=== PATIENT | female | born 1945 | race Caucasian/White ===

== ENCOUNTER 2016-09-15 09:25 | Day surgery (SDC) | payer MEDICARE, BC ==
[~2016-09-15 09:25] MED LIST: Acetaminophen TAB* 325 MG PO PRN; Buffered Lidocaine 1% SYR 3ML* 3 ML/SYR SYRINGE INTRADERM ONE
[2016-09-15] MEDS ORDERED: Flurbiprofen 0.03% OPTH.SOL* 2.5 ML BTL ONE (10:32)
[2016-09-15] MEDS ORDERED: Phenylephrine 2.5% OPTH.SOL* 2 ML BTL ONE (10:32)
[2016-09-15] MEDS ORDERED: Tetracaine 0.5% OPTH.SOL 4 ML* 1 DROP BTL ONE (10:32)
[2016-09-15] MEDS ORDERED: Tropicamide 1% OPTH.SOL* BTL ONE (10:32)
[2016-09-15] MEDS ORDERED: Lidocaine 1% MPF* 2 ML VIAL ONE (10:32)
[2016-09-15] MEDS ORDERED: Neomycin/Polymy/Dex OPHTH.OIN* 3.5 GM ONE (10:32)
[2016-09-15] MEDS ORDERED: Cyclopentolate 1% OPTH.SOL* 2 ML BTL ONE (10:32)
[2016-09-15] MEDS ORDERED: fentaNYL* 50 MCG/ML 2 ML VIAL (100 MCG VIAL) ONE (10:41)
[2016-09-15] MEDS ORDERED: Midazolam* 1 MG/ML 2 ML VIAL (2 MG) ONE ×2 (10:42→10:56)
[2016-09-15 11:46] VITALS: BP 168/80
--- NOTE | 2016-09-16 00:18 | OP ---
DATE OF OPERATION: 09/15/16 [facility] DATE OF : 45 SURGEON: Dr. William Nguyen. EGG TRAYER: None. ANESTHESIOLOGIST: Delphine Kelly MD ANESTHESIA: Topical with intravenous sedation. PRE-OP DIAGNOSIS: Cataract, left eye. POST-OP DIAGNOSIS: Cataract, left eye. OPERATIVE PROCEDURE: Phacoemulsification and cataract extraction with posterior chamber intraocular lens implant, left eye. COMPLICATIONS: None. BLOOD LOSS: None. DESCRIPTION OF PROCEDURE: The patient was brought to the operating room and received a small amount of intravenous sedation. A drop of Tetracaine was placed in her left eye. She was prepped and draped in the usual sterile fashion for ophthalmic surgery and attention was directed to the left eye where a speculum was placed. A paracentesis was created at the 5 o'clock position and 0.1 cc of 1 percent preservative-free Lidocaine was injected into the anterior chamber followed by DisCoVisc. The eye was digitally stabilized while a 2.75 mm keratome was used to create a triplanar clear corneal incision at the 3 o'clock position. A continuous curvilinear capsulorrhexis was created with a cystotome and Utrata forceps. BSS on a cannula was used to hydrodissect the lens from the capsule. Phacoemulsification was performed in a divide-and- conquer technique to create four fragments which were removed. Residual cortical material was removed with irrigation and aspiration. DisCoVisc was used to inflate the capsular bag using an [id number] 21.5 diopter lens was folded and inserted into the capsular bag. DisCoVisc was removed using irrigation and aspiration. BSS on a cannula was used to hydrate the corneal stroma and seal the wound. At the end of the case the pupil was round and the lens was centered. The eye was of normal pressure and the wound was water tight. The speculum was removed and topical Maxitrol ointment was placed on the surface of the eye. The eye was closed, patched and shielded and the patient was sent to the recovery room in stable condition with post operative instructions and follow-up appointment given. [id number]/CPS #: [id number] MTDD
== END 2016-09-15 11:41 | disposition home or self-care (01) ==
LOC: OREAST 09:25
PROVIDERS: ATTEND Ophthalmology
DX: H25.812 Combined forms of age-related cataract, left eye (principal); I10 Essential (primary) hypertension; E03.9 Hypothyroidism, unspecified; E78.00 Pure hypercholesterolemia, unspecified; H40.019 Open angle with borderline findings, low risk, unspecified eye; M17.12 Unilateral primary osteoarthritis, left knee; E66.9 Obesity, unspecified; Z88.1 Allergy status to other antibiotic agents; Z88.5 Allergy status to narcotic agent; Z79.82 Long term (current) use of aspirin; Z68.35 Body mass index [BMI] 35.0-35.9, adult; M79.7 Fibromyalgia; Z79.1 Long term (current) use of non-steroidal anti-inflammatories (NSAID)
CPT/HCPCS: A9270-GY; J2250; J3010; V2632

== ENCOUNTER 2019-03-23 11:10 | Inpatient (IN) | payer MEDICARE, BC ==
--- NOTE | 2019-03-16 16:22 | HP ---
AMENDED REPORT NOW INCLUDES DESIGNATED COSIGNER - ESIGNED BEFORE ADJUSTMENTS PREOPERATIVE HISTORY AND PHYSICAL: DATE OF ADMISSION/SURGERY: 03/23/19 SURGEON: Dr. Mireille Lua.* (DICTATED BY ROBERTO Rose) PROCEDURE: Right total hip arthroplasty. CHIEF COMPLAINT: Right hip pain. HISTORY OF PRESENT ILLNESS: This is a 73-year-old female followed by Dr. Lua for right hip pain that has become progressively debilitating over the years. She had undergone intraarticular injections, which had helped for a few weeks, but the groin pain returned and is severe. Any amount of stair climbing, prolonged standing, or rising from a seated position causes severe pain. She has failed conservative treatments and is seeking surgical intervention with Dr. Lua at this time. PAST MEDICAL HISTORY: Chronic low back pain and osteoarthritis, hypertension, diverticulitis, hypothyroidism, morbid obesity. She denies history of DVT or pulmonary embolism. PAST SURGICAL HISTORY: Hysterectomy as well as a cyst and duct removal from her breast. She denies anesthetic complications from any of these procedures, but does get nauseous with anesthesia. CURRENT MEDICATIONS: 1. Synthroid 100 mcg 1 tab by mouth daily. 2. Amlodipine besylate 2.5 mg 1 tab by mouth daily. 3. Celebrex 100 mg twice daily. 4. Vitamin D high potency 1 tab by mouth daily. 5. Vitamin B complex 1 tab by mouth daily. ALLERGIES: PERCOCET makes her nauseous. FAMILY HISTORY: Negative for heart disease, diabetes, or cancer. SOCIAL HISTORY: She lives with her spouse, who will care for her postoperatively. She is a retired cashier or checker stock clerk. She consumes minimal alcohol and denies tobacco or recreational drug use. She is minimally active. REVIEW OF SYSTEMS: Fourteen systems were reviewed with the patient today. They are positive for right hip pain and chronic back pain, but are negative for fevers, chills, chest pain, or shortness of breath, and all other systems are negative as well. PHYSICAL EXAMINATION GENERAL: She is a well-developed, well-nourished female, seated on exam table, in no acute distress, with appropriate affect. VITAL SIGNS: Height 64 inches, weight 208 pounds. Pulse 68, blood pressure 132 /86, respirations 16. HEENT: Normocephalic, atraumatic. Hearing and vision are grossly intact, with extraocular movements intact. NECK: The trachea is midline and symmetrical. CHEST: Lungs are clear to auscultation. No wheezes, rales, or rhonchi appreciated. CARDIO: Regular rate and rhythm. Normal S1, S2. No murmurs, rubs, or gallops noted. ABDOMEN: Nondistended, nontender. Bowel sounds present. GENITOURINARY: Deferred. MUSCULOSKELETAL: Right lower extremity: Skin is pink, dry, and intact with no abrasions or open wounds. She has tenderness in the groin with hip flexion to 90 with pain. She has 0 degrees of internal rotation, 20 degrees of external rotation with groin pain. Sensation is intact. Active range of motion in the right ankle in 4 planes and a 2+ dorsalis pedis pulse. IMAGING: Multiple views of the right hip reviewed from the office. They show advanced arthritis with [id number] contact, extensive osteophyte formation and remodeling of both femoral head and acetabular bone. There is subchondral cyst formation. ASSESSMENT: Right hip severe osteoarthritis. PLAN: Right total hip arthroplasty with Dr. Lua. The patient's questions were answered and she would like to proceed. Dr. Lua reviewed the potential risks and complications with the patient today. The patient will follow up postoperatively and pain medication will be dispensed postoperatively. ROBERTO ROSE [id number]/CPS #: [id number] MTDKellen
[~2019-03-23 11:10] MED LIST changes: -Acetaminophen TAB* 325 MG PO PRN; -Buffered Lidocaine 1% SYR 3ML* 3 ML/SYR SYRINGE INTRADERM ONE; +Buffered Lidocaine 1% SYRIN* 1 ML/SYRINGE INTRADERM ONE; +Dexamethasone IV* 4 MG/ML 1 ML (4 MG) IV SLOW PU ONE; +Famotidine IV* 10 MG/ML 2 ML (20 mg) IV ONE; +Lactated Ringers 1000 ML Bag* 1,000 ML IV SCH; +Tranexamic Acid 1,000 MG in NS 0.9% 50 ML* (outpatient use) IV SCH
--- OUTSIDE RECORDS SUMMARY | 2019-03-23 11:14 | XMS REPORT | Continuity of Care Document ---
:1945 External Reference #:[id number] Author Name Mireille Lua M.D. (transmitted by agent of provider Faby Barnes) Address [address] [place] [address] Care Team Providers Name Role Phone Gumaro Jackman DO - Family Care Team Information Bottom Stainer Medicine Problems Active Problems Provider Date Localized, primary osteoarthritis of the pelvic Mireille Lua M.D. Onset: region and thigh Social History Type Date Description Comments Sex Unknown Tobacco Use Start: Unknown Never Smoked Cigarettes Smoking Status Reviewed: 03/13/19 Never Smoked Cigarettes ETOH Use Occasionally consumes alcohol Tobacco Use Start: Unknown Patient has never smoked Recreational Drug Use Denies Drug Use Exercise Type/Frequency Does not exercise Allergies, Adverse Reactions, Alerts Active Allergies Reaction Severity Comments Date Percocet 06/22/2018 Medications Active Medications SIG Qnty Indications Ordering Provider Date Tramadol HCL 1 tablet every 4 72tabs Evert Granados MD 03/13/2019 50mg hours as needed Tablets for pain Zofran 1 tab by mouth 20tabs Evert Granados MD 03/13/2019 4mg Tablets every 4 hours as needed for nausea Synthroid 1 by mouth every Unknown 100mcg day Tablets Amlodipine Besylate 1 by mouth every Unknown day 2.5mg Tablets Celecoxib Unknown 100mg Capsules Vitamin D High 1 by mouth every Unknown Potency day Capsules Vitamin-B Complex 1 by mouth every Unknown day Tablets Medications Administered in Office Medication SIG Qnty Indications Ordering Provider Date Depomedrol 40MG Mireille Lua M.D. 06/22/2018 Injection Immunizations Description No Information Available Vital Signs Date Vital Result Comment 03/13/2019 12:59pm Height 64.25 inches 5'4.25" Weight 208.00 lb Heart Rate 68 /min BP Systolic 132 mmHg BP Diastolic 86 mmHg Respiratory Rate 15 /min Body Temperature 97.6 F Pain Level 3 BMI (Body Mass Index) 35.4 kg/m2 03/01/2019 11:23am Height 64.25 inches 5'4.25" Weight 200.00 lb BP Systolic 126 mmHg BP Diastolic 84 mmHg Pain Level 3 BMI (Body Mass Index) 34.1 kg/m2 Results Test Date Facility Test Result H/L Range Note Urinalysis Profile 03/09/2019 [facility] Urine Color Yellow [address] [place] [address] [phone] Urine Appearance Turbid Urine Specific [place] 1.021 Normal 1.010-1.030 Urine pH 5.0 Normal 5-9 Urine Urobilinogen Negative Negative Urine Ketones Negative Negative Urine Protein Negative Negative Urine Leukocytes Negative Negative Urine Blood Negative Negative Urine Nitrite Negative Negative Urine Bilirubin Negative Negative Urine Glucose Negative Negative Inr/Protime 03/09/2019 [facility] Inr 0.97 Normal 0.82-1.09 1 [address] [place] [address] [phone] CBC Auto Diff 03/09/2019 [facility] White Blood 5.7 Normal 3.5 -10.[address] Count 10^3/[place] [address] [phone] Red Blood Count 5.13 10^6/uL High 3.70-4.87 Hemoglobin 15.4 g/dL Normal 12.0-16.0 Hematocrit 46 % Normal 35-47 Mean Corpuscular Volume 90 fL Normal 80-97 Mean Corpuscular Hemoglobin 30 pg Normal 27-31 Mean Corpuscular HGB Conc 33 g/dL Normal 31-36 Red Cell Distribution Width 14 % Normal 10-15 Platelet Count 203 10^3/uL Normal 150-450 Mean Platelet Volume 9.1 fL Normal 7.4-10.4 Abs Neutrophils 3.7 10^3/uL Normal 1.5-7.7 Abs Lymphocytes 1.4 10^3/uL Normal 1.0-4.8 Abs Monocytes 0.5 10^3/uL Normal 0-0.8 Abs Eosinophils 0.1 10^3/uL Normal 0-0.6 Abs Basophils 0.0 10^3/uL Normal 0-0.2 Abs Nucleated RBC 0.0 10^3/uL Granulocyte % 64.3 % Lymphocyte % 25.3 % Monocyte % 8.0 % Eosinophil % 1.9 % Basophil % 0.5 % Nucleated Red Blood Cells % 0.2 Comp Metabolic 03/09/2019 [facility] Sodium 141 mmol/L Normal 135-[address] [place] [address] [phone] Potassium 4.6 mmol/L Normal 3.5-5.0 Chloride 107 mmol/L Normal 101-111 Co2 Carbon Dioxide 29 mmol/L Normal 22-32 Anion Gap 5 mmol/L Normal 2-11 Glucose 95 mg/dL Normal 70-100 Blood Urea Nitrogen 17 mg/dL Normal 6-24 Creatinine 0.79 mg/dL Normal 0.51-0.95 BUN/Creatinine Ratio 21.5 High 8-20 Calcium 9.7 mg/dL Normal 8.6-10.3 Total Protein 6.8 g/dL Normal 6.4-8.9 Albumin 4.1 g/dL Normal 3.2-5.2 Globulin 2.7 g/dL Normal 2-4 Albumin/Globulin Ratio 1.5 Normal 1-3 Total Bilirubin 0.70 mg/dL Normal 0.2-1.0 Alkaline Phosphatase 111 U/L High 34-104 Alt 31 U/L Normal 7-52 Ast 22 U/L Normal 13-39 Egfr Non- 71.3 >60 Egfr 86.3 >60 2 Laboratory test 03/09/2019 [facility] Thyroxine 8.35 Normal 6.09-12.[address] g/[place] [address] [phone] TSH (Thyroid Stim Horm) 1.68 mcIU/mL Normal 0.34-5.60 4 T3 Total 88 ng/dL Normal 87-178 5 Urine Culture And 03/09/2019 [facility] Urine Culture SEE RESULT [address] [place] [address] [phone] 1 Standard intensity warfarin therapeutic range: 2.0-3.0 High intensity warfarin therapeutic range: 2.5-3.5 2 Because ethnic data is not always readily available, this report includes an eGFR for both -Americans and non- Americans. The National Kidney Disease Education Program (NKDEP) does not endorse the use of the MDRD equation for patients that are not between the ages of 18 and 70, are , have extremes of body size, muscle mass, or nutritional status, or are non- or non-. According to the National Kidney Foundation, irrespective of diagnosis, the stage of the disease is based on the level of kidney function: Stage Description GFR(mL/min/1.73 m(2)) 1 Kidney damage with normal or decreased GFR 90 2 Kidney damage with mild decrease in GFR 60-89 3 Moderate decrease in GFR 30-59 4 Severe decrease in GFR 15-29 5 Kidney failure <15 (or dialysis) 3 Copy Result to: Mireille LUA ([id number]) 4 Copy Result to: Mireille LUA ([id number]) 5 Copy Result to: Mireille LUA ([id number]) 6 SEE RESULT BELOW Name: DAISY AQUINO Sofía : [address]: Rose CHANCE Acct: [id number] Unit: [id number] AGE: 73 Location: [facility] Re03/09/19 SEX: F Status: REG REF SPEC: [id number] JERRI: 03/09/19-[address]: Rose CHANCE REQ: [id number] RECD: 03/09/19 STATUS: SARA FAN DR: Mireille Lua MD _ SOURCE: URINE [facility]: ORDERED: Urine Culture Urine Source: Clean Catch Procedure Result Reported Site Urine Culture Final 03/11/19- 1013 ML Organism 1 STREP GROUP B [facility] Count 10-25,000 (Moderate) CFU/ML Organism 2 NORMAL LAM [facility] Count 10-25,000 (Moderate) CFU/ML Susceptibility testing of penicillins and other B-lactams approved by FDA for treatment of Streptococcus pyogenes (Group A Strep) and Streptococcus agalactiae (Group B Strep) is not necessary for clinical purposes and need not be done routinely, since as with vancomycin, resistant strains have not been recognized. (CLSI B191-U93;p.66) Positive isolates will be saved for one week. Please call the Microbiology Laboratory if further susceptibility testing is needed. * [facility] - Main Lab . END OF REPORT DEPARTMENT OF PATHOLOGY, [address] [place] [address] Skyler Shin M.D. Director [facility] # [id number] Procedures Description No Information Available Medical Devices Description No Information Available Encounters Type Date Location Provider Dx Diagnosis Office Visit 02/02/2019 Neurosurgery Zaida Osorio, M48.061 Spinal stenosis, 3:00p [facility] lumbar region without neurogenic randy Office Visit 11/18/2018 Orthopedic Services Mireille Lua, Ovidio6.11 Unilateral 11:30a Of [facility] primary osteoarthritis, right hip M25.551 Pain in right hip Assessments Date Code Description Provider 03/13/2019 M16.11 Unilateral primary osteoarthritis, right hip Mireille Lua M.D. 03/13/2019 M25.551 Pain in right hip Mireille Lua M.D. 02/06/2019 M16.11 Unilateral primary osteoarthritis, right hip Mireille Lua M.D. 02/06/2019 M25.551 Pain in right hip Mireille Lua M.D. 02/03/2019 M16.11 Unilateral primary osteoarthritis, right hip Mireille Lua M.D. 02/03/2019 M25.551 Pain in right hip Mireille Lua M.D. 02/02/2019 M48.061 Spinal stenosis, lumbar region without Zaida Osorio, PA neurogenic claudication 11/18/2018 M16.11 Unilateral primary osteoarthritis, right hip Mireille Lua M.D. 11/18/2018 M25.551 Pain in right hip Mireille Lua M.D. Plan of Treatment Future Appointment(s):04/03/2019 2:15 pm - M[facility] M.D. at [facility]05/29/2019 12:00 pm - Layla Alaniz MD at [facility]03/23/2019 1:30 pm - MERON Agudelo at [facility]03/23/2019 1:30 pm - MERON Goncalves at [facility]03/23/2019 1:30 pm - Mireille Lua M.D. at [facility]/13/2019 - Mireille Lua M.D.M16.11 Unilateral primary osteoarthritis, right hipFollow up:Follow up: 10-14 days fxsnjuQ67.551 Pain in right hip Functional Status Description No Information Available Mental Status Description No Information Available Referrals Refer to Dr Reason for Referral Status Appt Date Layla Alaniz MD chronic low back pain Created [address] [place] [id number] [phone]
--- OUTSIDE RECORDS SUMMARY | 2019-03-23 11:14 | XMS REPORT | Continuity of Care Document ---
:1945 External Reference #:[id number] Author Name Cheryl Ren Care Team Providers Name Role Phone Gumaro Jackman DO Primary Care Physician Unavailable Payers Date Identification Numbers Payment Provider Subscriber Policy Number: [id number] Medicare Daisy Aquino PayID: [id number] [address] [place] [address] Policy Number: [id number] [facility] Daisy Aquino PayID: [id number] [address] [place] [address] Problems Active Problems Provider Date Localized, primary osteoarthritis of the pelvic Mireille Lua M.D. Onset: region and thigh Family History Date Family Member(s) Observation Comments General Cancer Social History Type Date Description Comments Sex Unknown Marital Status Lives With Occupation Retired Tobacco Use Start: Unknown Never Smoked Cigarettes Smoking Status Reviewed: 02/02/19 Never Smoked Cigarettes ETOH Use Occasionally consumes alcohol Tobacco Use Start: Unknown Patient has never smoked Recreational Drug Use Denies Drug Use Exercise Type/Frequency Does not exercise Allergies, Adverse Reactions, Alerts Active Allergies Reaction Severity Comments Date Percocet 06/22/2018 Medications Active Medications SIG Qnty Indications Ordering Provider Date Synthroid 1 by mouth every Unknown 100mcg Tablets day Amlodipine Besylate 1 by mouth every Unknown 2.5mg day Tablets Celecoxib Unknown 100mg Capsules Vitamin D High Potency 1 by mouth every Unknown day Capsules Vitamin-B Complex 1 by mouth every Unknown Tablets day History Medications Gabapentin take 1 capsule three Unknown - 02/02/2019 100mg Capsules times daily Medications Administered in Office Medication SIG Qnty Indications Ordering Provider Date Depomedrol 40MG Mireille Lua M.D. 06/22/2018 Injection Vital Signs Date Vital Result Comment 02/02/2019 2:59pm Height 64.25 inches 5'4.25" Weight 200.00 lb BP Systolic Sitting 158 mmHg BP Diastolic Sitting 60 mmHg Pain Level 3 BMI (Body Mass Index) 34.1 kg/m2 11/18/2018 11:29am Height 64.25 inches 5'4.25" Weight 200.00 lb Heart Rate 70 /min BP Systolic 138 mmHg BP Diastolic 76 mmHg Respiratory Rate 12 /min Pain Level 7 BMI (Body Mass Index) 34.1 kg/m2 07/08/2018 1:28pm Height 64.25 inches 5'4.25" Weight 203.00 lb Heart Rate 64 /min BP Systolic 140 mmHg BP Diastolic 86 mmHg BMI (Body Mass Index) 34.6 kg/m2 06/22/2018 12:53pm Height 64.5 inches 5'4.50" Weight 203.00 lb BP Systolic 116 mmHg BP Diastolic 72 mmHg Pain Level 2 When Sitting BMI (Body Mass Index) 34.3 kg/m2 Procedures Date Code Description Status 06/22/201894403 Inj/Aspir Major JT Or Bursa W/ US Completed Encounters Type Date Location Provider Dx Diagnosis Office Visit 11/18/2018 Orthopedic Mireille Lua, M16.11 Unilateral primary 11:30a [facility] osteoarthritis, right hip M25.551 Pain in right hip Office Visit 07/08/2018 Orthopedic Mireille M16.11 Unilateral primary 1:30p [facility]ua osteoarthritis, right [facility] hip M25.551 Pain in right hip Office Visit 06/22/2018 1:00p Orthopedic Services Mireille Lua M25.551 Pain in right Of [facility] hip M16.11 Unilateral primary osteoarthritis, right hip Plan of Treatment Future Appointment(s):03/01/2019 11:30 am - ROBERTO Shane at [facility]/07/2018 - VIELKA Shane99.23 Subluxation stenosis of neural canal of lumbar regionFollow up:Can follow up with either Dr. Alaniz or Devon MARTIN
--- OUTSIDE RECORDS SUMMARY | 2019-03-23 11:14 | XMS REPORT | Continuity of Care Document ---
:1945 External Reference #:[id number] Author Name Rose Garay PA (transmitted by agent of provider Nelly Lopez) Address [address] [facility], [facility] [address] [place] [address] Care Team Providers Name Role Phone Mireille Lua MD - Orthopaedic Care Team Information Radiographer [phone] Surgery Problems Active Problems Provider Date Backache Nayely Zambrano MD Onset: 02/18/2010 Arthralgia of the lower leg Nayely Zambrano MD Onset: 02/18/2010 Obesity Nayely Zambrano MD Onset: 02/18/2010 Pure hypercholesterolemia Nayely Zambrano MD Onset: 02/18/2010 Benign essential hypertension Nayely Zambrano MD Onset: 02/18/2010 Hypothyroidism Nayely Zambrano MD Onset: 05/07/2011 Female climacteric state Nayely Zambrano MD Onset: 05/07/2011 Cramp and spasm Gumaro Jackman D.O. Onset: 09/05/2015 Localized, primary osteoarthritis Gumaro Jackman D.O. Onset: 09/05/2015 Spinal stenosis of lumbar region Gumaro Jackman D.O. Onset: 09/05/2015 Essential hypertension Gumaro Jackman D.O. Onset: 11/05/2015 Vitamin D deficiency Gumaro Jackman D.O. Onset: 03/10/2016 Thoracic and lumbosacral neuritis Rose Garay PA Onset: 03/23/2017 Social History Type Date Description Comments Sex Unknown Tobacco Use Start: Unknown Never Smoked Cigarettes ETOH Use Rare Alcohol Use Recreational Drug Use Denies Drug Use Tobacco Use Start: Unknown Patient has never smoked Smoking Status Reviewed: 03/09/19 Patient has never smoked Allergies, Adverse Reactions, Alerts Active Allergies Reaction Severity Comments Date Codeine Nauseous, Dizzy 03/02/2006 Biaxin 09/09/2010 Medications Active Medications SIG Qnty Indications Ordering Provider Date Celecoxib Take 1 Capsule 180caps M17.0 Selvin Scanlon, 03/05/2018 100mg By Mouth Once To M.D. Capsules Twice Daily as Needed For Joint Pain Vitamin D3 Maximum 1 by mouth every Unknown 12/05/2015 Strength day 5000Unit Capsules Amlodipine Besylate Take One Tablet 90tabs I10 Gumaro Jackman, 11/05/2015 By Mouth Every D.O. 2.5mg Tablets Day Vitamin B-12 1 by mouth every Unknown 09/04/2015 500mcg day Tablets Synthroid 1 tab po every 90tabs E03.9 Selvin Scanlon, 11/28/2013 100mcg morning M.D. Tablets Medications Administered in Office Medication SIG Qnty Indications Ordering Provider Date injection, kenalog, 10 mg Gumaro Jackman, D.O. 09/08/2016 Injection injection, kenalog, 10 mg Gumaro Jackman, D.O. 11/05/2015 Injection Immunizations CPT Code Status Date Vaccine Lot # [id number] Given 03/09/2019 Shingrix Zoster (Shingles) Vaccine (HZV) [id number] Recomb,Subnit,Adjuvanted 16418 Given 03/09/2019 Influenza Vaccine, Inactivated, Subunit, [id number] Adjuvanted, For Intrmusc 39887 Given 03/08/2018 Shingrix Zoster (Shingles) Vaccine (HZV) [id number] Recomb,Subnit,Adjuvanted 55695 Given 03/08/2018 Influenza Vaccine Split Virus Preservative Free Im [id number] Use 12444 Given 03/03/2017 Influenza Vaccine Split Virus Preservative Free Im [id number] Use 31403 Given 04/09/2016 Influenza Vaccine Split Virus Preservative Free Im [id number] Use 39472 Given 12/06/2015 Prevnar 13 [id number] 96152 Given 04/28/2013 Flu, Split Virus 3Yrs 26117 Given 06/08/2012 Flu Vaccine Split Virus 3Yrs And Older [id number] 67679 Given 05/07/2011 Pneumococcal Immunization [id number] 32171 Given 05/07/2011 Flu, Split Virus 3Yrs [id number] 87990 Given 09/09/2010 Zostavax [id number] 52581 Given 02/18/2010 Adacel or Boostrix, TDaP [id number] 41438 Given 08/20/2006 Td Immunization [id number] 57561 Given 04/04/1997 Td Immunization Vital Signs Date Vital Result Comment 03/09/2019 10:24am BP Systolic 146 mmHg BP Diastolic 82 mmHg BP Systolic Recheck 134 mmHg BP Diastolic Recheck 82 mmHg Height 64 inches 5'4" Weight 208.00 lb BMI (Body Mass Index) 35.7 kg/m2 03/08/2018 8:48am BP Systolic 130 mmHg BP Diastolic 82 mmHg Height 64.75 inches 5'4.75" with sandals Weight 204.00 lb with sandals BMI (Body Mass Index) 34.2 kg/m2 Results Test Date Facility Test Result H/L Range Note CBC Auto Diff 03/09/2019 [facility] White Blood 5.7 10^3/uL Normal 3.5-10.8 [phone] Count Red Blood Count 5.13 10^6/uL High 3.70-4.87 [...] % Nucleated Red Blood Cells % 0.2 Inr/Protime 03/09/2019 [facility] Inr 0.97 Normal 0.82-1.09 4 [phone] Urinalysis Profile 03/09/2019 [facility] Urine Color Yellow [phone] Urine Appearance Turbid Urine Specific [place] 1.021 Normal 1.010-1.030 Urine pH 5.0 Normal 5-9 Urine Urobilinogen Negative Negative Urine Ketones Negative Negative Urine Protein Negative Negative Urine Leukocytes Negative Negative Urine Blood Negative Negative Urine Nitrite Negative Negative Urine Bilirubin Negative Negative Urine Glucose Negative Negative Laboratory test 03/09/2019 [facility] TSH (Thyroid Stim <pending> finding [phone] Horm) Thyroxine <pending> T3 Total <pending> 1 Standard intensity warfarin therapeutic range: 2.0-3.0 High intensity warfarin therapeutic range: 2.5-3.5 Procedures Date Code Description Status 03/09/2019 66886 Electrocardiogram Complete Completed 02/13/2019 [id number] Mammogram Completed 11/03/2015 39278358 Colonoscopy Completed Medical Devices Description No Information Available Encounters Type Date Location Provider Dx Diagnosis Office Visit 03/09/2019 Main Office Rose Garay PA Z01.818 Encounter for other 10:05a preprocedural examination Z23 Encounter for immunization M16.11 Unilateral primary osteoarthritis, right hip I10 Essential (primary) hypertension M48.061 Spinal stenosis, lumbar region without neurogenic randy E03.9 Hypothyroidism, unspecified Z41.8 Encntr for oth proc for purpose oth than [facility] Z68.35 Body mass index (BMI) 35.0-35.9, adult Assessments Date Code Description Provider 03/09/2019 Z01.818 Encounter for other preprocedural examination Rose Garay PA 03/09/2019 Z23 Encounter for immunization Rose Garay PA 03/09/2019 M16.11 Unilateral primary osteoarthritis, right hip Rose Garay PA 03/09/2019 I10 Essential (primary) hypertension Rose Garay PA 03/09/2019 M48.061 Spinal stenosis, lumbar region without Rose Garay PA neurogenic claudication 03/09/2019 E03.9 Hypothyroidism, unspecified Rose Garay PA 03/09/2019 Z41.8 Encounter for other procedures for purposes [facility] 03/09/2019 Z68.35 Body mass index (BMI) 35.0-35.9, adult Rose Garay PA Plan of Treatment Future Appointment(s):03/06/2020 9:40 am - Rose Garay PA at Main [id number] - Rose Garay, PAZ01.818 Encounter for other preprocedural examinationComments:Patient is at mildly increased risk for surgery due to age, but is cleared for planned procedure without additional cardiac testing based on ACC/AHA guidelines, provided labs are within acceptable range. Functional capacity is mildly decreased, as activity is limited by pain.Patient has no prior anesthetic related complications.She was advised to inform the surgeon of any acute illness which may occur between now and surgical date. This consultation has been faxed to the referring physician.Studiesordered in Office: EKG - Sinus bradycardia. Vent rate 58, Betty 207 QRSd 125, QT/QTc 452/449, P-R-T axes 51/9/16. Compared to 07/11/13 EKG, no significant change.Labs - CMP, CBC, INR , UA, TSH drawn in office today. Results pending, will be copied to surgeon.Z23 Encounter for immunizationComments:Flu and Shingrix #2 vaccines given today.M16.11 Unilateral primary osteoarthritis, right hipComments:Surgery to be done as above.I10 Essential (primary) hypertensionComments:Well controlled. Continue same meds and monitor.M48.061 Spinal stenosis, lumbar region without neurogenic claudicationComments:Pt will f/u w Dr. Steiner after hip surgery.E03.9 Hypothyroidism, unspecifiedComments:Will recheck TSH today, continue same dose of levothyroxine in the meantime.Z41.8 Encounter for other procedures for purposes other than remed[facility] health auqtmP71.35 Body mass index (BMI) 35.0-35.9, adult Functional Status Description No Information Available Mental Status Description No Information Available Referrals Description No Information Available
[2019-03-23] MEDS ORDERED: Buffered Lidocaine 1% SYRIN* 1 ML/SYRINGE INTRADERM ONE (11:59)
[2019-03-23] MEDS ORDERED: Gabapentin CAP(*) 300 MG ONE (11:59)
[2019-03-23] MEDS ORDERED: Famotidine IV* 10 MG/ML 2 ML (20 mg) ONE (11:59)
[2019-03-23] MEDS ORDERED: Dexamethasone IV* 4 MG/ML 1 ML (4 MG) ONE (11:59)
[2019-03-23] MEDS ORDERED: ceFAZolin 2 GM PREMIX in ORs 2 GM/50 ML BAG ONE (11:59)
[2019-03-23] MEDS: Gabapentin CAP(*) 300 MG PO ONE ×2 (12:11→19:55)
[2019-03-23] MEDS ORDERED: fentaNYL* 50 MCG/ML 2 ML VIAL (100 MCG VIAL) ONE (12:32)
[2019-03-23] MEDS ORDERED: ROPIVACAINE 5 MG/ML 30 ML BTL (0.5%) ONE (12:32)
[2019-03-23] MEDS ORDERED: Ropivacaine (OR use only) 2 MG/ML 10 ML ONE (12:32)
[2019-03-23] MEDS ORDERED: Midazolam* 1 MG/ML 5 ML VIAL (5 MG) ONE (12:32)
[2019-03-23] MEDS ORDERED: Propofol* 10 MG/ML 20 ML BTL ONE (12:32)
[2019-03-23] MEDS ORDERED: KETAMINE HCL* 50 MG/ML 10 ML VIAL ONE (12:32)
[2019-03-23] MEDS ORDERED: Ondansetron INJ* 2 MG/ML VIAL ONE (12:32)
[2019-03-23] MEDS ORDERED: Phenylephrine 10 MG/ML VIAL* 1 ML VIAL ONE (12:34)
[2019-03-23] MEDS ORDERED: Atracurium* 10 MG/ML 10 ML VIAL ONE (12:35)
[2019-03-23] MEDS ORDERED: Scopolamine 1.5 mg* PATCH ONE (13:10)
[2019-03-23] MEDS ORDERED: Glycopyrrolate IV* 0.2 MG/ML 1 ML VIAL ONE (13:37)
[2019-03-23] MEDS ORDERED: Ondansetron INJ* 2 MG/ML VIAL IV PRN ×2 (14:03→15:52)
[2019-03-23] MEDS ORDERED: Naloxone* 0.4 MG/ML 1 ML VIAL IV PRN (14:03)
[2019-03-23] MEDS ORDERED: DiMENhydriNATE IV* 50 MG/ML VIAL IV PUSH PRN (14:03)
[2019-03-23] MEDS ORDERED: HYDROmorphone INJ1* 1 MG/ML SYRINGE IV PRN (14:03)
[2019-03-23] MEDS ORDERED: fentaNYL* 50 MCG/ML 2 ML VIAL (100 MCG VIAL) IV PRN (14:03)
[2019-03-23] MEDS ORDERED: Cyclobenzaprine TAB* 10 MG PO PRN (15:52)
[2019-03-23] MEDS ORDERED: Polyethylene Glycol 3350* 17 GM PACKET PO PRN (15:52)
[2019-03-23] MEDS ORDERED: Morphine 10 MG/ML VIAL (1 ml) IV PRN (15:52)
[2019-03-23] MEDS ORDERED: diPHENhydraMINE PO* 25 MG PO PRN (15:52)
[2019-03-23] MEDS ORDERED: Ondansetron ODT TAB* 4 MG PO PRN (15:52)
[2019-03-23] MEDS ORDERED: diPHENhydraMINE IV* 50 MG/ML 1 ml VIAL (BENADRYL) IV PRN (15:52)
[2019-03-23] MEDS ORDERED: Magnesium Hydroxide LIQ* 30 ML UDC PO PRN (15:52)
[2019-03-23] MEDS: Lactated Ringers 1000 ML Bag* 1,000 ML IV SCH (19:00)
[2019-03-23] MEDS: traMADol TAB* 50 MG PO PRN (19:21)
--- NOTE | 2019-03-23 20:26 | OP ---
Operative Report - Blank - Operative Report Date of Operation: 03/23/19 Note: RMOAN WILLAMS 1945 Date Of Surgery: 03/23/19 Mireille Lua MD Through Operator: Heather MEJIA did help throughout the procedure with preparation of the hip, wound retraction, manipulation of the hip, and wound closure. Anesthesiologist: Bhavani Tamez MD Anesthesia Type: Spinal Preoperative Diagnosis: Right severe degenerative osteoarthritis of the hip Postoperative Diagnosis: As above Procedure Performed: Right Total Hip Arthroplasty Complications: None Specimen: Femoral head and acetabular reamings sent to pathology. Hardware used: This is uncemented Filipe total hip arthroplasty hardware for the femur a size 4 accolade II with 127 neck angle femoral component, for the acetabulum a size 52E trident II tritanium cluster hole shell with a 20 mm screw, for the insert a size 36E trident X3 polyethylene insert, and for the femoral head a size 36 +0 ceramic biolox V40 femoral head. Brief history/Indication: ROMAN WILLAMS was known in clinic and had a history of severe right hip pain. She failed conservative treatment with anti- inflammatories, pain pills, intra-articular injections and physical therapy. She elected to undergo right total hip arthroplasty due to continued pain and decreased quality of life. Radiographs showed severe end stage osteoarthritis of the hip with bone on bone contact. Informed consent was obtained from the patient. She understood the risks of surgery included but were not limited to: bleeding, infection, damage to nearby structures, intraoperative fracture, nerve palsy, failure of the hardware, early loosening, stiffness or loss of motion, dislocation, leg length discrepancy, anesthesia complications, stroke, heart attack, blood clot and . She wished to proceed. Intra-Operative findings: Intraoperatively the patient was noted to have severe loss of cartilage of the acetabulum and femoral head. Description of the Procedure: ROMAN WILLAMS was identified in the preanesthesia unit. Her right hip was marked as the correct operative side. Informed consent was signed and placed in the chart. The patient was taken to the operating room and placed under anesthesia without complication. A gallagher catheter was placed. The patient was placed on the peg board with all bony prominences well padded. The right lower extremity was prepped and draped in the usual sterile fashion. Preoperative time -out was made to correctly identify the patient, side and site. Appropriate intraoperative antibiotics were given within one hour of incision. A standard posterior incision was made and carried sharply down to the lateral fascia. A new 10 blade was used to make an incision in the fascia in line with the skin incision. A charnley retractor was placed. The piriformis and conjoined tendons were identified and elevated off the posterolateral femur using electrocautery. These were tagged with number 5 Ethibond. Next electrocautery was used to make a posterolateral capsular flap and this was tagged with number 5 Ethibonds. The hip was carefully dislocated. Lesser trochanter to the center of the femoral head was measured at 58 mm. The oscillating saw was used to make the femoral neck cut. The femoral head was carefully removed. The femur was retracted anteriorly and the acetabular retractors were placed. Long-handled knife was used to sharply remove any remaining labrum from the acetabular rim. The acetabulum was sequentially reamed up to a size 52. A bleeding subchondral bone bed was obtained. A trial liner was placed and had excellent fit and stability. A 52E trident II tritanium cup with a 20mm screw was placed and had excellent stability with appropriate anteversion and abduction angle. A size 36E trident X3 polyethylene liner was impacted into the acetabular shell. The liner was checked for stability and was stable. Next attention was turned to preparation of the femoral canal. A canal finder was used to enter the proximal femur. The femoral canal was sequentially broached up to a size 4 femoral broach trial. A trial neck and 36 + 0 trial femoral head was chosen. Lesser trochanter to center of the femoral head measurement was satisfactory. The hip was reduced and taken through a range of motion. The hip was stable in all positions with good soft tissue tension and appropriate leg lengths. The hip was dislocated and all trials were removed. The final implant chosen was a accolade II size 4 with 127 neck angle. This stem was impacted into the femoral canal without difficulty. The stem was stable with appropriate anteversion. The femoral head chosen was a 36 + 0 The head was impacted onto the femoral neck without difficulty. The final lesser trochanter to center of the femoral head measurement was satisfactory. The hip was reduced and taken through a range of motion. The hip was stable in all positions with good soft tissue tension and appropriate leg lengths. The hip was copiously irrigated with sterile saline. The previously tagged capsule and tendons were repaired to the posterolateral femur through two trochanteric drill holes. The lateral fascia layer was closed using number 1 vicryls. The rest of the incision was closed in a layered fashion using 0 and 2-0 vicryls. The skin was closed using 3-0 monocryl suture and Dermabond. Sterile adaptic, 4x4s and paper tape was used to cover the incision. The patients anesthesia was reversed without difficulty. She was taken to the PACU in stable condition. Intended weight-bearing will be as tolerated with posterior hip precautions.
[2019-03-23] MEDS: Docusate CAP* 100 MG PO SCH (21:30)
[2019-03-23] MEDS: Acetaminophen TAB* 325 MG PO SCH (21:30)
[2019-03-23] MEDS: ceFAZolin 1 GM ADVAN(*) 1 GM in NS 0.9% 50 ML* 50 ML IVPB SCH (21:30)
[2019-03-23] MEDS: Magnesium Hydroxide LIQ* 30 ML UDC PO SCH (21:30)
--- NOTE | 2019-03-23 22:57 | CONS ---
CC: Mireille Lua MD * CONSULTATION REPORT: DATE OF CONSULT: 03/23/19 CONSULTING PROVIDER: Mireille Lua MD. MY ATTENDING WHILE IN THE HOSPITAL: Dr. Gabriela Grover. REASON FOR CONSULTATION: Co-management of co-morbid medical conditions. HISTORY OF PRESENT ILLNESS: Ms. Aquino is a 73-year-old female with past medical history significant for hypertension, hypothyroidism, and osteoarthritis who is currently status post elective right total hip arthroplasty with spinal anesthesia for end-stage osteoarthritis. The patient postoperatively is having low heart rates and dizziness without hypotension. The patient previously had a reaction too. The patient's dizziness and bradycardia occurred approximately at the same time. The patient has no associated chest pain or shortness of breath. Before she came to the hospital, the patient was feeling very well. The patient had no fevers, chills, chest pain, shortness of breath, or dyspnea on exertion. The patient never passed out before. The patient has never been told she has a slow heart rhythm. The patient had some nausea before when her heart rate was dropping low. The patient also received gabapentin and ketamine, which per the anesthesiologist can cause bradycardia. The patient's last bowel movement was this morning and she does not feel as though she has to have one now. The patient is not in a significant amount of pain. The patient most recently took her amlodipine this morning. PAST MEDICAL HISTORY: Chronic low back pain, osteoarthritis, hypertension, diverticulitis, hypothyroidism, morbid obesity. PAST SURGICAL HISTORY: Hysterectomy, cyst in duct removed from her breast. MEDICATIONS: 1. Synthroid 100 mcg p.o. daily. 2. Amlodipine 2.5 mg p.o. daily. 3. Celebrex 100 mg p.o. daily. 4. Vitamin D 1 tab p.o. daily. 5. Vitamin B 1 tab p.o. daily. ALLERGIES: PERCOCET. FAMILY HISTORY: Unknown as the patient is adopted. The patient's son had thyroid cancer at age 47 and a daughter with bladder cancer in her 40s. SOCIAL HISTORY: The patient lives with her . 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 The patient has never smoked, drinks minimal alcohol, and denies illicit drug use. The patient's surrogate decision maker will be her , Case Aquino. REVIEW OF SYSTEMS: A 10-point review of systems was reviewed and was negative, except as noted above in the HPI. PHYSICAL EXAM: General: The patient is a 73-year-old female who appears her stated age and is sitting comfortably in the bed, in no acute distress. Vital Signs at the time of evaluation: Temperature 97.3, pulse rate 45, respiratory rate 16, oxygen saturation 96% on 2 L, blood pressure 128/84. HEENT: Head normocephalic, atraumatic. Sclerae anicteric. No conjunctival injection. Nasal mucosa moist. Oral mucosa moist. No pharyngeal erythema, postnasal drip, or exudate. Neck: Supple, nontender. No lymphadenopathy. No carotid bruit auscultated. No JVD. Cardiac: Bradycardic. No clicks, murmurs, gallops, or rubs. Pulses 2+ in the bilateral dorsalis pedis, posterior tibialis and radial areas. Respiratory: Clear to auscultation bilaterally. No wheezes, rales, or rhonchi. Good air exchange bilaterally. Abdomen: Soft, nontender, and nondistended. Bowel sounds present and normoactive in all 4 quadrants. No hepatosplenomegaly. No abdominal bruits auscultated. No hepatojugular reflux. Genitourinary: No suprapubic or CVA tenderness. Skin: Clean, dry, and intact. No rashes. Right hip covered in bulky dressing, not visualized. Neuro : Anesthetic below the knees, minimal movement in the bilateral lower extremities; left with greater movement than the right. Cranial nerves II through XII intact. Psychiatric: Pleasant and cooperative. DIAGNOSTIC STUDIES/LAB DATA: Preoperative laboratory data: White blood cell count 6.3, hemoglobin 15.3, platelet count 217. INR 1.01, APTT 37.0. Sodium 141, potassium 4.2, chloride 107, carbon dioxide 28, anion gap 6, BUN 16, creatinine 0.8, glucose 83, calcium 9.4. Bilirubin 0.6, AST 24, ALT 32, alkaline phosphatase 108. Protein 6.9, albumin 4.2, globulin 2.7. Urine unremarkable. EKG shows sinus bradycardia. T-wave inversion in V3 is new, replacing T-wave flattening. No ST-segment elevation or depression. Right bundle-branch block, unchanged from preoperative EKG. ASSESSMENT AND PLAN: Impression: Ms. Aquino is a 73-year-old female with past medical history significant for hypertension and osteoarthritis who is status post a right total knee replacement, is bradycardic and dizzy postoperatively, but is otherwise doing well. 1. Postoperative state. The patient's bradycardia is likely a postoperative complication from the neuraxial anesthesia, which occurs in approximately 10% to 15% of cases. It is unclear whether the patient's dizziness is associated with her bradycardia, which is unlikely given her heart rate given that her blood pressure is normal or whether this is an independent side effect of anesthesia. The latter is more likely given that the patient has had this side effect previously associated with surgery. The patient should have her H and H trended. The patient had minimal blood loss intraoperatively. The patient should have her Betancourt removed whenever possible. Physical therapy, occupational therapy, bowel regimen, and pain control. 2. Hypertension. Hold the patient's amlodipine given dizziness and neuraxial anesthesia. This can be reintroduced when needed. 3. Hypothyroidism. Continue Synthroid at the current dose. 4. FEN. The patient will have a regular unrestricted diet. The patient will have IV fluid until she is able to tolerate fluids by mouth. 5. Disposition. Per Orthopedics. 6. DVT prophylaxis. Eliquis per Orthopedics. TIME SPENT: Approximately 60 minutes were spent on this consultation; 30 of which were spent [id number] with the patient, obtaining history and physical, and discussing the treatment plan. Plan has been discussed with my attending, Dr. Gabriela Grover, and she is in agreement. ROBERTO CABELLO [id number]/[facility] #: [id number] JOESPH
[2019-03-24] MEDS: Ketorolac INJ* 30 MG/ML 1 ML VIAL IV PRN ×2 (00:18→14:21)
[2019-03-24] MEDS: traMADol TAB* 50 MG PO PRN ×2 (03:36→10:00)
[2019-03-24] MEDS: Lactated Ringers 1000 ML Bag* 1,000 ML IV SCH (04:43)
[2019-03-24] MEDS: ceFAZolin 1 GM ADVAN(*) 1 GM in NS 0.9% 50 ML* 50 ML IVPB SCH ×2 (04:57→13:13)
[2019-03-24] MEDS: Levothyroxine TAB* 100 MCG TAB PO SCH (04:57)
[2019-03-24] MEDS: Acetaminophen TAB* 325 MG PO SCH ×3 (04:58→21:33)
[2019-03-24 08:22] LABS: Hematocrit 40 % (35-47); Hemoglobin 13.4 g/dL (12.0-16.0); Mean Platelet Volume 9.1 fL (7.4-10.4); Platelet Count 192 10^3/uL (150-450)
[2019-03-24 08:38] LABS: BUN/Creatinine Ratio 19.7 (8-20); Calcium 8.8 mg/dL (8.6-10.3); EGFR African American 90.3 (>60); EGFR Non-African American 74.6 (>60); Potassium 4.5 mmol/L (3.5-5.0)
[2019-03-24] MEDS ORDERED: AMLODIPINE 2.5 MG TAB (NF) PO SCH (09:00)
[2019-03-24] MEDS: Apixaban* 2.5 MG TAB PO SCH ×2 (10:00→21:33)
[2019-03-24] MEDS: Magnesium Hydroxide LIQ* 30 ML UDC PO SCH ×2 (10:00→21:33)
[2019-03-24] MEDS: Docusate CAP* 100 MG PO SCH ×2 (10:00→21:33)
[2019-03-24] MEDS: Cholecalciferol TAB* 1000 UNITS PO SCH (10:00)
[2019-03-24] MEDS: Cyanocobalamin TAB* 500 MCG PO SCH (10:00)
[2019-03-24] MEDS: Vitamin THERAPEUTIC TAB PO SCH (10:06)
--- NOTE | 2019-03-24 11:19 | PN ---
Subjective Date of Service: 03/24/19 Interval History: Patient is complaining about 4/10 pain in hip and numbness in medial thigh extending into lateral calf. Patient denies any radicular pain. Patient had an episode of slight dizziness on standing and had her leg almost give out when she first stood up. Patient denies CP, SOB, abdominal pain, diarrhea, dysuria, anuria, or other pain. Family History: Unchanged from Admission Social History: Unchanged from Admission Past Medical History: Unchanged from Admission Objective Active Medications: Acetaminophen (Tylenol Tab*) 975 mg PO Q8HR [facility] Last Admin: 03/24/19 04:58 Dose: 975 mg Apixaban (Eliquis*) 2.5 mg PO BID [facility] Last Admin: 03/24/19 10:00 Dose: 2.5 mg Bisacodyl (Dulcolax Supp*) 10 mg [facility] DAILY PRN PRN Reason: CONSTIPATION Cholecalciferol (Vitamin D Tab*) 5,000 units PO [facility] Last Admin: 03/24/19 10:00 Dose: 5,000 units Cyanocobalamin (Vitamin B12 Tab*) 500 mcg PO QAM [facility] Last Admin: 03/24/19 10:00 Dose: 500 mcg Cyclobenzaprine HCl (Flexeril Tab*) 10 mg PO Q6H PRN PRN Reason: SPASMS Diphenhydramine HCl (Benadryl Iv*) 25 mg IV Q6H PRN PRN Reason: PRURITIS Diphenhydramine HCl (Benadryl Po*) 25 mg PO Q6H PRN PRN Reason: INSOMNIA Docusate Sodium (Colace Cap*) 100 mg PO BID [facility] Last Admin: 03/24/19 10:00 Dose: 100 mg Cefazolin Sodium 1 gm/ Sodium (Chloride) 50 mls @ 200 mls/hr IVPB Q8H [facility] Stop: 03/24/19 13:44 Last Admin: 03/24/19 04:57 Dose: 200 mls/hr Lactated Ringer's (Lactated Ringers 1000 Ml Bag*) 1,000 mls @ 100 mls/hr IV PER RATE [facility] Last Admin: 03/24/19 04:43 Dose: 100 mls/hr Ketorolac Tromethamine (Toradol Inj*) 30 mg IV Q6H PRN PRN Reason: PAIN - MILD Last Admin: 03/24/19 00:18 Dose: 30 mg Lactulose (Lactulose*) 30 ml PO BID PRN PRN Reason: CONSTIPATION Levothyroxine Sodium (Synthroid Tab*) 100 mcg PO DAILY@0600 [facility] Last Admin: 03/24/19 04:57 Dose: 100 mcg Magnesium Hydroxide (Milk Of Magnesia Liq*) 30 ml PO BID [facility] Last Admin: 03/24/19 10:00 Dose: 30 ml Magnesium Hydroxide (Milk Of Magnesia Liq*) 30 ml PO Q6H PRN PRN Reason: CONSTIPATION Morphine Sulfate (Morphine 10 Mg/Ml Vial (1 Ml)) 5 mg IV Q4H PRN PRN Reason: Pain - Unrelieved Multivitamins (Theragran Tab*) 1 tab PO DAILY [facility] Last Admin: 03/24/19 10:06 Dose: 1 tab Ondansetron HCl (Zofran Inj*) 4 mg IV Q6H PRN PRN Reason: NAUSEA Ondansetron HCl (Zofran Odt Tab*) 4 mg PO Q6H PRN PRN Reason: NAUSEA Last Admin: 03/23/19 19:20 Dose: 4 mg Polyethylene Glycol/Electrolytes (Miralax*) 17 gm PO DAILY PRN PRN Reason: Constipation Tramadol HCl (Ultram*) 50 mg PO Q6H PRN PRN Reason: PAIN - MODERATE Last Admin: 03/24/19 10:00 Dose: 50 mg Vital Signs - 8 hr 03/24/19 03/24/19 03/24/19 03:26 03:36 05:43 Temperature 98.2 F Pulse Rate 57 Respiratory 17 17 16 Rate Blood Pressure 107/56 (mmHg) O2 Sat by Pulse 95 Oximetry 03/24/19 03/24/19 03/24/19 08:00 08:44 10:00 Temperature 98.6 F Pulse Rate 62 Respiratory 16 16 18 Rate Blood Pressure 117/61 (mmHg) O2 Sat by Pulse 95 91 Oximetry Oxygen Devices in Use Now: None Appearance: Patient is a 73yo female who appears stated age and is sitting in the bed in [facility]. Eyes: No Scleral Icterus, PERRLA Ears/Nose/Mouth/Throat: NL Teeth, Lips, Gums, Clear Oropharnyx, Mucous Membranes Moist Neck: NL Appearance and Movements; NL JVP, Trachea Midline Respiratory: Symmetrical Chest Expansion and Respiratory Effort, Clear to Auscultation Cardiovascular: NL Sounds; No Murmurs; No JVD, RRR, No Edema Abdominal: NL Sounds; No Tenderness; No Distention, No Hepatosplenomegaly Lymphatic: No Cervical Adenopathy Extremities: No Edema, No Clubbing, Cyanosis Skin: No Nodules or Sclerosis, - - Right hip incision dressed and nt visualized. Neurological: Alert and Oriented x 3, - - Diminished sensation to light touch on medial thigh. Grade 4/5 strength with dorsiflexion of right foot. Result Diagrams: 03/24/19 08:15 03/24/19 08:15 Assess/Plan/Problems-Billing Assessment: Patient is a 73yo female with a PMH for HTN, hypothyroidism, here with [facility], patient has post-operative numbess in leg, but is otherwise doing well. - Patient Problems (1) Post-operative state Current Visit: Yes Status: Acute Code(s): Z98.890 - OTHER SPECIFIED POSTPROCEDURAL STATES SNOMED Code(s): 88453376 Comment: - Management per Orthopedics - Post op bradycardia resolved - Numbness in leg likely late effect of spinal anesthesia, monitor - Monitor H/H, PT/OT, bowel regimen and pain control. (2) HTN (hypertension) Current Visit: Yes Status: Acute Code(s): I10 - ESSENTIAL (PRIMARY) HYPERTENSION SNOMED Code(s): 56570686 Comment: - Normotensive, hold Amlodipine until indicated. (3) Hypothyroidism Current Visit: Yes Status: Acute Code(s): E03.9 - HYPOTHYROIDISM, UNSPECIFIED SNOMED Code(s): 74509668 Comment: - Continue synthroid at home dose. (4) DVT prophylaxis Current Visit: Yes Status: Acute Code(s): Z29.9 - ENCOUNTER FOR PROPHYLACTIC MEASURES, UNSPECIFIED SNOMED Code(s): 840900301 Comment: - Eliquis. (5) Full code status Current Visit: Yes Status: Acute Code(s): Z78.9 - OTHER SPECIFIED HEALTH STATUS SNOMED Code(s): 149662636 Status and Disposition: Disposition per Orthopedics, Thank you for this consult, we will continue to follow along with you.
--- NOTE | 2019-03-24 13:21 | PN ---
Progress Note - Progress Note Date of Service: 03/24/19 SOAP: Subjective: []Patient seen OOB in chair. She still has some numbness right anterior thigh. Her knee buckled in BR this am, she did not fall. She was hoping that she would be able to go home this evening but is unsure if she will feel ready. She is going to see how she feels after PT this afternoon. Objective: [] Vital Signs Temp 98.3 F 03/24/19 11:24 Pulse 51 03/24/19 11:24 Resp 18 03/24/19 13:13 BP 105/54 03/24/19 11:24 Pulse Ox 93 03/24/19 11:24 Intake & Output 03/23/19 03/24/19 03/24/19 18:59 06:59 18:59 Intake Total 2200 1982 Output Total 1850 Balance 2200 132 Weight 206 lb 6.4 oz Intake: IV Fluids 2200 980 LR 2100 980 NS 100ML, Cefazolin 2G 100 IVPB 102 ABX - CEFAZOLIN 102 Oral 900 Output: [place] 1850 Laboratory Results - last 24 hr 03/24/19 03/24/19 08:15 08:15 Hgb 13.4 Hct 40 Plt Count 192 MPV 9.1 Sodium 137 Potassium 4.5 Chloride 106 Carbon Dioxide 26 Anion Gap 5 BUN 15 Creatinine 0.76 Est GFR ( Amer) 90.3 Est GFR (Non-Af Amer) 74.6 BUN/Creatinine Ratio 19.7 Glucose 118 H Calcium 8.8 Right hip dressing is dry and intact +DF right ankle sensation intact in leg and foot, has diminished sensation anterior thigh, she has active knee flexion calf NT 2+ pedal pulse Assessment: []s/p Right total hip arthroplasty POD #1 Plan: []PT/OT WBAT RLE Eliquis for DVT prophylaxis Home later today vs tomorrow
[2019-03-25] MEDS: Acetaminophen TAB* 325 MG PO SCH (05:40)
[2019-03-25] MEDS: Levothyroxine TAB* 100 MCG TAB PO SCH (05:41)
[2019-03-25] MEDS: traMADol TAB* 50 MG PO PRN (05:41)
[2019-03-25 06:33] LABS: Hematocrit 36 % (35-47); Hemoglobin 12.3 g/dL (12.0-16.0); Mean Platelet Volume 9.2 fL (7.4-10.4); Platelet Count 166 10^3/uL (150-450)
[2019-03-25 07:42] VITALS: BP 112/51
[2019-03-25] MEDS: Cholecalciferol TAB* 1000 UNITS PO SCH (08:46)
[2019-03-25] MEDS: Docusate CAP* 100 MG PO SCH (08:46)
[2019-03-25] MEDS: Cyanocobalamin TAB* 500 MCG PO SCH (08:47)
[2019-03-25] MEDS: Apixaban* 2.5 MG TAB PO SCH (08:47)
[2019-03-25] MEDS: Vitamin THERAPEUTIC TAB PO SCH (08:47)
[2019-03-25] MEDS: Magnesium Hydroxide LIQ* 30 ML UDC PO SCH (08:48)
--- NOTE | 2019-03-25 10:02 | DS ---
Orthopedic Discharge Summary - Discharge Summary Date of Admission:03/23/19 Date of Discharge: 03/25/19 Date of Surgery: 03/23/19 Attending Orthopedic Provider: Dr. Lua Pre-operative Diagnosis: Degenerative arthritis right hip Operative Procedure: Right total hip arthroplasty Disposition of Patient: home Condition of Patient: stable History: ROMAN WILLAMS is a 73 year old F with years of increasingly severe right hip pain. Patient has failed conservative management and has elected to undergo a right total hip replacement Hospital Course: ROMAN was admitted to [facility] on 03/23/19. Patient underwent a right total hip without complication followed by a brief recovery in PACU and transfer to the Short Stay Surgical Unit in stable condition. Our hospitalist service, physical therapy and occupational therapy also participated in this patients care. Post-op day 1: patient was alert and in no acute distress. Dressing was clean, dry and intact. Operative extremity dorsiflexion and plantarflexion intact, sensation intact to light touch distally , DP2+. Post-op day two: dressing was changed, incision was clean, dry and intact. Patient was deemed to be medically and orthopedically stable for discharge. Physical therapy goals were met. Home Medications Medication Instructions Recorded Confirmed Type Amlodipine Besylate [Amlodipine 2.5 mg PO QAM 09/08/16 03/23/19 History 2.5 mg tab] Cyanocobalamin TAB* [Vitamin B12 500 mcg PO QAM 09/08/16 03/23/19 History TAB*] Levothyroxine TAB* [Synthroid 100 100 mcg PO QAM 09/08/16 03/23/19 History MCG TAB*] celeCOXIB CAP* [Celebrex CAP*] 100 mg PO BID 12/02/18 03/23/19 History Cholecalciferol (Vitamin D3) 5,000 unit PO QAM 03/13/19 03/23/19 History [Vitamin D3] Apixaban* [Eliquis*] 2.5 mg PO BID #60 tab 03/25/19 Rx Docusate CAP* [Colace Cap*] 100 mg PO BID cap 03/25/19 Rx traMADol TAB* [Ultram*] 50 mg PO Q6H PRN #28 tab MDD 4 03/25/19 Rx Discharge Instructions following Orthopedic Surgery: Activity: * Weight Bearing as tolerated * Continue physical therapy and occupational therapy exercises as shown Hip replacements: Continue Hip Precautions- do not cross legs or bend greater than 90 degrees/squat Wound care: * OK to shower on post-op day 3, no bathing, swimming, or submerging wound. * Use gentle soap, pat dry. Cover with gauze, PARRISH wrap or tape. * Visiting home nurse to do wound checks. Call Orthopedic office for: * Increased drainage * Redness * Increased pain * Fever Go to ER with shortness of breath or chest pain. Diet: * Regular diet * Increase fluids and fiber to prevent constipation. * Continue to use stool softeners, call office if no bowel motion within 48 hours. Medications See Home Medication List in your packet for medications that you should take after discharge. DVT Prophylaxis: Eliquis Dosin.5 mg, 1 tab every 12 hours x 30 days ay Pain Control: tramadol 50 mg po q 6 hrs prn pain Antibiotics are required prior to any dental work. FOLLOW UP: Follow up with Dr. Lua Within 10-14 days, call for appointment Please call our office with any questions or concerns ([phone])
[2019-03-25] MEDS ORDERED: Bisacodyl SUPP* 10 MG SUPP PR PRN (15:52)
== END 2019-03-25 10:25 | disposition home or self-care (01) | DRG 470 ==
LOC: AA 11:10 → SSU 17:52
PROVIDERS: ADMIT Orthopaedic Surgery Adult Reconstructive Orthopaedic Surgery; ATTEND Orthopaedic Surgery Adult Reconstructive Orthopaedic Surgery
PROC: 0SR904A Replacement of Right Hip Joint with Ceramic on Polyethylene Synthetic Substitute, Uncemented, Open Approach (ICD-10-PCS; principal; 2019-03-23 14:15)
DX: M16.11 Unilateral primary osteoarthritis, right hip (principal); G89.29 Other chronic pain; I10 Essential (primary) hypertension; E03.9 Hypothyroidism, unspecified; E66.01 Morbid (severe) obesity due to excess calories; K57.90 Diverticulosis of intestine, part unspecified, without perforation or abscess without bleeding; I44.0 Atrioventricular block, first degree; I45.10 Unspecified right bundle-branch block; M48.061 Spinal stenosis, lumbar region without neurogenic claudication; M41.9 Scoliosis, unspecified; E78.5 Hyperlipidemia, unspecified; R42 Dizziness and giddiness; R00.1 Bradycardia, unspecified; E55.9 Vitamin D deficiency, unspecified; Z90.722 Acquired absence of ovaries, bilateral; Z68.35 Body mass index [BMI] 35.0-35.9, adult; Z90.710 Acquired absence of both cervix and uterus; Z88.6 Allergy status to analgesic agent; Z98.42 Cataract extraction status, left eye; Z98.41 Cataract extraction status, right eye; Z80.52 Family history of malignant neoplasm of bladder; Z80.8 Family history of malignant neoplasm of other organs or systems
CPT/HCPCS: 36415; 80048; 85014; 85018; 85049; 88304; 88311; A9270-GY; C1713; C1776; G8978-GP-CJ; G8979-GP-CI; J0690; J1100; J1885; J2250; J2405; J2704; J2795; J3010

== ENCOUNTER 2024-03-20 07:28 | Observation (INO) ==
[~2024-03-20 07:28] MED LIST changes: -Buffered Lidocaine 1% SYRIN* 1 ML/SYRINGE INTRADERM ONE; -Dexamethasone IV* 4 MG/ML 1 ML (4 MG) IV SLOW PU ONE; -Famotidine IV* 10 MG/ML 2 ML (20 mg) IV ONE; -Lactated Ringers 1000 ML Bag* 1,000 ML IV SCH; +Metoclopramide 5 MG/ML VIAL (10 mg) IV PRN; +NS 0.45% 1000 ml BAG 1,000 ML IV SCH; +Naloxone 0.4 mg VIAL 0.4 mg/ml 1 ml VIAL IV PRN; +Ondansetron 4 mg VIAL 2 MG/ML 2 ml VIAL IV PRN; -Tranexamic Acid 1,000 MG in NS 0.9% 50 ML* (outpatient use) IV SCH
[2024-03-20] MEDS ORDERED: Chlorhexidine MOUTHWASH 0.12% 15 ML UDC ONE (08:08)
[2024-03-20] MEDS ORDERED: Famotidine IV 10 MG/ML 2 ml VIAL (20 mg) ONE (08:24)
[2024-03-20] MEDS ORDERED: ceFAZolin 2 GM PREMIX 2 GM/50 ML BAG ONE (08:24)
[2024-03-20] MEDS ORDERED: Rocuronium 50 mg VIAL 10 mg/ml 5 ml VIAL (50 mg) ONE (08:30)
[2024-03-20] MEDS ORDERED: Propofol 10 MG/ML 20 ML BTL ONE (08:30)
[2024-03-20] MEDS ORDERED: Ondansetron 4 mg VIAL 2 MG/ML 2 ml VIAL ONE (08:30)
[2024-03-20] MEDS ORDERED: Midazolam 2 mg/2 ml VIAL 1 mg/ml 2 ml VIAL (2 mg) ONE (08:30)
[2024-03-20] MEDS ORDERED: Lidocaine 2% PF 5 ML VIAL ONE (08:30)
[2024-03-20] MEDS ORDERED: Dexamethasone IV 4 MG/ML VIAL 1 ml VIAL ONE (08:30)
[2024-03-20] MEDS ORDERED: fentaNYL 250 mcg/5 ml 50 MCG/ML 5 ml VIAL (250 MCG) ONE (08:31)
[2024-03-20] MEDS ORDERED: Scopolamine 1 mg/72hr PATCH ONE (08:48)
[2024-03-20] MEDS: Scopolamine 1 mg/72hr PATCH TRANSDERM ONE (08:49)
[2024-03-20] MEDS: Famotidine IV 10 MG/ML 2 ml VIAL (20 mg) IV SLOW PU ONE (08:50)
[2024-03-20] MEDS: Lactated Ringers 1000 ml BAG 1,000 ML IV SCH ×2 (08:51→14:30)
[2024-03-20] MEDS: Buffered Lidocaine 1% SYRIN 1 ml INTRADERM ONE (08:51)
[2024-03-20 08:53] LABS: Rapid COVID-19 Molecular Undetected (Undetected)
[2024-03-20] MEDS ORDERED: Lidocaine 1% w EPI 1:100,000 MDV 20 ML VIAL ONE (09:21)
[2024-03-20] MEDS ORDERED: Thrombin 5,000 UNITS 1 APPLIC KIT - topical use - TOPICAL ONE (09:21)
[2024-03-20] MEDS ORDERED: ceFAZolin VIAL VIAL ONE (09:21)
[2024-03-20] MEDS ORDERED: Phenylephrine 40 mcg/mL 10mL (400mcg) SYRINGE ONE (10:30)
[2024-03-20] MEDS ORDERED: Thrombin 5,000 UNITS(BOVINE) for Ultrasound Guided Pseudoaneursym ONE (10:55)
[2024-03-20] MEDS ORDERED: fentaNYL 100 mcg/2 ml 50 MCG/ML VIAL ONE ×2 (11:21→13:43)
[2024-03-20] MEDS ORDERED: Ondansetron 4 mg VIAL 2 MG/ML 2 ml VIAL IV PRN (12:40)
[2024-03-20] MEDS ORDERED: Phenol 1.4% Throat Spray BTL MT PRN (12:40)
[2024-03-20] MEDS ORDERED: Calcium Carb (TUMS) 500 mg CHEW TAB PO PRN (12:40)
[2024-03-20] MEDS ORDERED: Benzocaine/Menthol LOZ MT PRN (12:40)
[2024-03-20] MEDS ORDERED: Dextran 70/Hypromellose Tears Eye Drops 15 ml BTL (for Artificials Tears) BOTH EYES PRN (12:40)
[2024-03-20] MEDS ORDERED: HYDROcodone/ACETAMIN 5/325 mg TAB PO PRN (12:40)
[2024-03-20] MEDS ORDERED: Senna TAB 8.6 mg TAB PO PRN (12:40)
[2024-03-20] MEDS ORDERED: Morphine 2 MG/ML SYRINGE IV PRN (12:40)
[2024-03-20] MEDS: fentaNYL 100 mcg/2 ml 50 MCG/ML VIAL IV PRN (13:45)
[2024-03-20] MEDS: HYDROcodone/ACETAMIN 5/325 mg TAB PO PRN (15:51)
[2024-03-20] MEDS: Acetaminophen IV 1 GM/100ML 1,000 MG/100 ML BAG IV ONE (15:58)
[2024-03-21 14:43] VITALS: BP 104/64
== END 2024-03-21 15:00 | disposition home or self-care (01) ==
LOC: SSU 07:28 → OR 07:28
PROVIDERS: ADMIT Neurological Surgery; ATTEND Neurological Surgery

== ENCOUNTER 2024-05-16 13:31 | Observation (INO) ==
[~2024-05-16 13:31] MED LIST changes: +Acetaminophen IV 1 GM/100ML 1,000 MG/100 ML BAG IV ONE; -Metoclopramide 5 MG/ML VIAL (10 mg) IV PRN
[2024-05-16] MEDS ORDERED: ceFAZolin 2 GM PREMIX 2 GM/50 ML BAG ONE (13:50)
[2024-05-16] MEDS ORDERED: Tranexamic Acid 1 GM/100ML BAG 2,000 MG/200 ML BAG IV ONE (13:50)
[2024-05-16 14:13] LABS: Rapid COVID-19 Molecular Undetected (Undetected)
[2024-05-16] MEDS: Buffered Lidocaine 1% SYRIN 1 ml INTRADERM ONE (14:13)
[2024-05-16] MEDS: Lactated Ringers 1000 ml BAG 1,000 ML IV SCH ×2 (14:13→22:22)
[2024-05-16] MEDS ORDERED: Dexamethasone IV 4 MG/ML VIAL 1 ml VIAL ONE ×2 (14:23→16:04)
[2024-05-16] MEDS ORDERED: Rocuronium 50 mg VIAL 10 mg/ml 5 ml VIAL (50 mg) ONE (14:23)
[2024-05-16] MEDS ORDERED: Midazolam 2 mg/2 ml VIAL 1 mg/ml 2 ml VIAL (2 mg) ONE ×2 (14:23→16:03)
[2024-05-16] MEDS ORDERED: Ondansetron 4 mg VIAL 2 MG/ML 2 ml VIAL ONE (14:23)
[2024-05-16] MEDS ORDERED: Propofol 10 MG/ML 20 ML BTL ONE (14:23)
[2024-05-16] MEDS ORDERED: Lidocaine 2% PF 5 ML VIAL ONE (14:23)
[2024-05-16] MEDS ORDERED: fentaNYL 100 mcg/2 ml 50 MCG/ML VIAL ONE ×5 (14:23→19:15)
[2024-05-16] MEDS ORDERED: Scopolamine 1 mg/72hr PATCH ONE (16:03)
[2024-05-16] MEDS ORDERED: ROPIVACAINE 5 MG/ML 30 ML BTL (0.5%) ONE ×2 (16:04→16:10)
[2024-05-16] MEDS ORDERED: Famotidine IV 10 MG/ML 2 ml VIAL (20 mg) ONE (16:04)
[2024-05-16] MEDS ORDERED: Metoclopramide 5 MG/ML VIAL (10 mg) ONE (17:28)
[2024-05-16] MEDS ORDERED: Morphine 2 MG/ML SYRINGE IV PRN (18:06)
[2024-05-16] MEDS ORDERED: Magnesium Hydroxide LIQ 30 ML UDC PO PRN (18:06)
[2024-05-16] MEDS ORDERED: Ondansetron ODT 4 mg TAB 4 MG TAB PO PRN (18:06)
[2024-05-16] MEDS ORDERED: Lactulose 30 ml UDC PO PRN (18:06)
[2024-05-16] MEDS ORDERED: Ondansetron 4 mg VIAL 2 MG/ML 2 ml VIAL IV PRN (18:06)
[2024-05-16] MEDS ORDERED: Calcium Carb (TUMS) 500 mg CHEW TAB PO PRN (18:06)
[2024-05-16] MEDS ORDERED: HYDROcodone/ACETAMIN 5/325 mg TAB ONE (19:23)
[2024-05-16] MEDS: HYDROcodone/ACETAMIN 5/325 mg TAB PO ONE (19:24)
[2024-05-16] MEDS: fentaNYL 100 mcg/2 ml 50 MCG/ML VIAL IV PRN (19:25)
[2024-05-16] MEDS: Magnesium Hydroxide LIQ 30 ML UDC PO SCH (22:25)
[2024-05-16] MEDS ORDERED: HYDROcodone/ACETAMIN 5/325 mg TAB PO PRN ×2 (23:30→23:31)
[2024-05-17] MEDS: ceFAZolin 2 GM PREMIX 2 GM/50 ML BAG IV SCH (01:56)
[2024-05-17] MEDS: Scopolamine 1 mg/72hr PATCH TRANSDERM SCH (02:22)
[2024-05-17] MEDS: Vitamin THERAPEUTIC TAB PO SCH (08:41)
[2024-05-17 08:56] LABS: Hematocrit 43.3 % (35-45); Hemoglobin 13.7 g/dL (11.5-14.3); Mean Platelet Volume 8.7 fL (7.5-11.2); Platelet Count 183 10^3/uL (150-450)
[2024-05-17 09:48] VITALS: BP 118/66
[2024-05-17 10:01] LABS: Creatinine, Serum 0.91 mg/dL (0.51-0.95); eGFR CKD-EPI 64.6 (>60)
[2024-05-17 10:35] LABS: Potassium 4.1 mmol/L (3.5-5.0)
== END 2024-05-17 13:30 | disposition home or self-care (01) ==
LOC: OR 13:31 → SSU 13:31
PROVIDERS: ADMIT Orthopaedic Surgery Adult Reconstructive Orthopaedic Surgery; ATTEND Orthopaedic Surgery Adult Reconstructive Orthopaedic Surgery